=== PATIENT | female | born 1970 | race Caucasian/White ===

== ENCOUNTER → 2019-12-30 08:21 | Outpatient (CLI) | payer OTHER, SELFPAY ==
--- NOTE | ~2019-12-30 | MMUS_ITS ---
EXAMINATION: MM diagnostic coretta BI w sona, US breast LT limited HISTORY: Breast pain TECHNIQUE: Additional 3-D tomosynthesis images of the breasts were performed and synthetic 2-D images were generated. CAD analysis was submitted and interpreted. High resolution left breast ultrasound w as performed. COMPARISON: Comparison to multiple prior studies sequentially, with oldest reviewed study dated 11/05. BREAST PARENCHYMAL COMPOSITION: The breasts are extremely dense, which lowers the sensitivity of mamm ography FINDINGS: MAMMOGRAPHIC FINDINGS: There are no suspicious masses, calcifications or architectural distortion in either breast to sugges t malignancy. ULTRASOUND: Limited left breast ultrasound: Normal heterogeneous echotexture without focal solid or cystic mass. IMPRESSION: 1. No evidence for malignancy in either breast. 2. Routine yearly screening mammogram and regular clinical breast examination are recommended. BI-RADS Category 1: Negative Reviewed, dictated and finalized at location A. IMPRESSION: 1. No evidence for malignancy in either breast. 2. Routine yearly screening mammogram and regular clinical breast examination a re recommended. BI-RADS Category 1: Negative
== END ==
PROVIDERS: Visit Provider Student in an Organized Health Care Education/Training Program
DX: N64.4 Mastodynia (principal)
CPT/HCPCS: 76642; 77062; 77066; G0279

== ENCOUNTER → 2021-01-16 11:18 | Outpatient (CLI) | payer OTHER, SELFPAY ==
--- NOTE | ~2021-01-16 | MM_ITS ---
EXAMINATION: MM screening coretta BI w sona HISTORY: Screening TECHNIQUE: Craniocaudal and mediolateral oblique 3-D tomosynthesis images were obtained and synthetic 2-D images were generated. CAD analysis was submitted and interpreted. COMPARISON: Comparison to multiple prior studies sequentially, with oldest reviewed study dated 11/04. BREAST PARENCHYMAL COMPOSITION: The breasts are extremely dense, which lowers the sensitivity of mamm ography. FINDINGS: There is no evidence of suspicious mass, calcification, or architectural distortion to sugg est malignancy in either breast. There has been no suspicious interval change. IMPRESSION: 1. No mammographic evidence of malignancy. 2. Recommend routine screening mammography in one year. BI-RADS Category 1: Negative Reviewed, dictated and finalized at location A.
== END ==
PROVIDERS: Visit Provider Obstetrics & Gynecology
DX: Z12.31 Encounter for screening mammogram for malignant neoplasm of breast (principal)
CPT/HCPCS: 77063; 77067

== ENCOUNTER 2021-05-17 07:33 | Outpatient (CLI) | payer OTHER, SELFPAY ==
--- NOTE | 2021-05-17 07:45 | ECHO_ITS ---
Patient Info Name: Shereen Paul Age: 51 years : 1970 Gender: Female Ht: 63 in Wt: 130 lbs BSA: 1.63 m2 HR: 85 bpm BP: 113 / 81 mmHg Heart Rhythm: Sinus Rhythm Exam Date: 05/17/2021 8:06 AM Exam Location: [facility]monary Patient Status: Outpatient Admit Date: 05/17/2021 Staff Ordering Physician: Tobias Garay DO [employer]: MARIBEL Attending Provider: Tobias Garay DO Referring Physician: Jarrod ALICEA; Exam Type: CA echo doppler color flow Study Info Indications I34.1 - Nonrheumatic mitral (valve) prolapse Complete two-dimensional, color flow and Doppler transthoracic echocardiogram is performed. Summary 1. Complete two-dimensional, color flow and Doppler transthoracic echocardiogram is performed. 2. Left ventricular chamber dimension is normal. 3. Left ventricular systolic function is normal, estimated at 60-65%. 4. The left ventricular diastolic function is normal. 5. E/e' 6 is not elevated. 6. No pulmonary hypertension, estimated pulmonary arterial systolic pressure is 18 mmHg. Left Ventricle E/e' 6 is not elevated. Left ventricular chamber dimension is normal. Left ventricular systolic function is normal, estimated at 60-65%. The left ventricular diastolic function is normal. Right Ventricle Right ventricular chamber dimension is normal. Right ventricular systolic function is normal. Left Atria Left atrial chamber dimension is normal. Right Atria Right atrial chamber dimension is normal. Aortic Valve The aortic valve is trileaflet. There is no aortic valve stenosis. There is no aortic valve regurgitation. Pulmonic Valve There is no pulmonic regurgitation. Mitral Valve There is no mitral valve stenosis. There is no mitral valve regurgitation. Tricuspid Valve There is no tricuspid valve regurgitation. No pulmonary hypertension, estimated pulmonary arterial systolic pressure is 18 mmHg. Pericardium/Pleural There is no pericardial effusion. Inferior Vena Cava Normal inferior vena cava with >50% collapse upon inspiration consistent with normal right atrial pressure, 5 mmHg. Aorta The aortic root size at the sinus of Valsalva is normal. Left Ventricular Outflow Tract Name Value Normal LVOT 2D LVOT Diameter 2.0 cm LVOT Doppler LVOT Peak Gradient 4 mmHg LVOT Mean Gradient 2 mmHg LVOT VTI 21 cm LVOT VTI/AV VTI Ratio 0.7 LVOT Stroke Volume 63 ml LVOT CO 4.0 l/min LVOT CI 2.5 l/min/m2 Pulmonic Valve Name Value Normal RVOT Doppler RVOT Peak Gradient 3 mmHg PV Doppler PV Peak Gradient
== END 2021-05-17 07:34 | disposition home or self-care (01) ==
PROVIDERS: Visit Provider Internal Medicine Cardiovascular Disease
DX: I34.1 Nonrheumatic mitral (valve) prolapse (principal)
CPT/HCPCS: 93306

== ENCOUNTER → 2022-03-20 15:14 | Outpatient (CLI) | payer OTHER, SELFPAY ==
--- NOTE | ~2022-03-20 | MM_ITS ---
EXAMINATION: MM screening coretta BI w sona HISTORY: Screening TECHNIQUE: Craniocaudal and mediolateral oblique 3-D tomosynthesis images were obtained and synthetic 2-D images were generated. CAD analysis was submitted and interpreted. COMPARISON: Comparison to multiple prior studies sequentially, with oldest reviewed study dated 11/04. BREAST PARENCHYMAL COMPOSITION: The breasts are extremely dense, which lowers the sensitivity of mamm ography. FINDINGS: There is no evidence of suspicious mass, calcification, or architectural distortion to sugg est malignancy in either breast. There has been no suspicious interval change. IMPRESSION: 1. No mammographic evidence of malignancy. 2. Recommend routine screening mammography in one year. BI-RADS Category 1: Negative Reviewed, dictated and finalized at location A.
== END ==
PROVIDERS: PCP Family Medicine; Visit Provider Obstetrics & Gynecology
DX: Z12.31 Encounter for screening mammogram for malignant neoplasm of breast (principal)
CPT/HCPCS: 77063; 77067

== ENCOUNTER 2022-04-14 12:27 | Day surgery (SDC) | payer OTHER, SELFPAY ==
[2022-03-10 15:12] VITALS: BMI 23.0
[2022-04-03 09:39] VITALS: BMI 21.9
[2022-04-14 12:47] VITALS: BP 106/68; PULSE 81; RESP 12; TEMP 36.9; O2SAT 100; BMI 22.4
--- NOTE | 2022-04-14 12:59 | WPDANESEPPF ---
Anes - Initial Pre Proc Eval Procedure: Operation Date: 04/14/22 14:00 Proposed Procedures p Screening Colonoscopy - Raúl Hendricks MD Date/Time: 04/14/22 12:59 Surgeon: Raúl Hendricks MD Pre Op Diagnosis: Neoplasm Screening Patient Data Age: 51 Gender: F Height: 1.6 m Weight: 57.6 kg Last Vital Signs Temp 36.9 C 04/14/22 12:47 Pulse 81 04/14/22 12:47 Resp 12 04/14/22 12:47 BP 106/68 04/14/22 12:47 Pulse Ox 100 04/14/22 12:47 O2 Del Method Room Air 04/14/22 12:47 Allergies Allergy/AdvReac Type Severity Reaction Status Date / Time meperidine AdvReac Mild NAUSEA Verified 04/14/22 12:46 VOMITING hydrocodone AdvReac Unknown Nausea and Verified 04/14/22 12:46 Vomiting Home Medications Medication Instructions Recorded Confirmed Type multivitamin,pr-[id number] 1 tablet PO DAILY 12/19/19 04/14/22 History (Complete Multivitamin tablet) evening primrose oil 500 mg capsule 3,000 mg PO TID 12/27/20 04/14/22 History calcium carbonate 600 mg calcium 600 mg PO DAILY 11/14/21 04/14/22 History (1,500 mg) tablet (Calcium) folic acid 1 mg tablet 1 mg PO DAILY 01/06/22 04/14/22 History prednisone 10 mg tablet 10 mg PO PRN PRN RA flare-up 01/06/22 04/14/22 History sodium,potassium,mag sulfates 17.5 See Rx Instructions PO .COMPLEX 03/10/22 Rx gram-3.13 gram-1.6 gram oral soln #354 mL (Suprep Bowel Prep Kit) methotrexate sodium 2.5 mg tablet 25 mg PO WEEKLY 04/03/22 04/14/22 History Patient hx anesthesia problems: none Family hx anesthesia problems: none Results Review: All pre-operative results and documents have been reviewed as part of the pre-operative evaluation. [facility] Past Medical History Medical History Endometriosis Family history of colon cancer in father father diagnosed at age 45. Rheumatoid arthritis Vaginal delivery x 2 Surgical History Surgical History History of breast biopsy 2016 History of cholecystectomy 2015 History of colonoscopy with polypectomy History of laparoscopy [address] teeth removed 1989 Family History Family History Mother Patient's mother is in good health Hypertension Father Carcinoma of colon Family history of elevated blood lipids Grandparent Family history of malignant neoplasm of male breast, Onset Age: 40 Family history of Alzheimer's disease Family history of malignant neoplasm of brain Other Family history of cardiovascular disease Social History Social History Social History: Shereen is , she is a teacher for [employer] Smoking status: Never smoker Second hand tobacco smoke exposure: No Alcohol intake: current Substance use: never Substance use type: does not use Living arrangements: alone Spiritual care concerns: No Anes - Eval Final PreProcedure Day of Procedure 04/14/22 12:59 Patient weight: normal Heart: regular rate and rhythm Lungs: clear to auscultation Airway: Mallampati scale class II Neurological: alert and oriented Last oral intake: >/= 8 hours ASA classification: II Emergent: no Anesthetic plan: proceed Anesthesia type and monitoring: general GIVS and standard monitoring Results Review: All pre-operative results and documents have been reviewed as part of the pre-operative evaluation. Informed Consent: The patient's anesthetic plan and its attendant risks and benefits were discussed with the patient/family/POA. Questions were solicited and answers provided to the satisfaction of the patient/family/POA.
[2022-04-14] MEDS: LACTATED RINGERS 1,000 ML 150 ML IV CONT (13:01)
--- NOTE | 2022-04-14 13:13 | PM.HPGS ---
History of Present Illness History of Present Illness Consent: Risks, benefits, and alternatives have been discussed and questions answered. Patient agrees to proceed with procedure. Chief complaint: Neoplasm Screening Narrative: Shereen Paul is a 51 year old female Presents for screening colonoscopy. Patient's current weight appetite and bowel movements are normal. She denies abdominal pain. She has had no bleeding. Patient reports that she was found to have a benign polyp in 2006. None on more recent colonoscopies. Family history is significant her father had colon cancer at age 45. Patient presents today for screening colonoscopy. Patient presents today for screening colonoscopy. Review of Systems Review of Systems: Review of systems noncontributory. PMFSH Past Medical History Medical History Endometriosis Family history of colon cancer in father father diagnosed at age 45. Rheumatoid arthritis Vaginal delivery x 2 Surgical History Surgical History History of breast biopsy 2015 History of cholecystectomy 2014 History of colonoscopy with polypectomy History of laparoscopy [address] [place] teeth removed 1989 Family History Family History Mother Patient's mother is in good health Hypertension Father Carcinoma of colon Family history of elevated blood lipids Grandparent Family history of malignant neoplasm of male breast, Onset Age: 40 Family history of Alzheimer's disease Family history of malignant neoplasm of brain Other Family history of cardiovascular disease Social History Social History Social History: Shereen is , 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 smoker Second hand tobacco smoke exposure: No Alcohol intake: current Substance use: never Substance use type: does not use Living arrangements: alone Spiritual care concerns: No Meds Home Medications and Allergies Home Medications Medication Instructions Recorded Confirmed Type multivitamin,gn-dlck-furmbyxh 1 tablet PO DAILY 12/19/19 04/14/22 History (Complete Multivitamin tablet) evening primrose oil 500 mg capsule 3,000 mg PO TID 12/27/20 04/14/22 History calcium carbonate 600 mg calcium 600 mg PO DAILY 11/14/21 04/14/22 History (1,500 mg) tablet (Calcium) folic acid 1 mg tablet 1 mg PO DAILY 01/06/22 04/14/22 History prednisone 10 mg tablet 10 mg PO PRN PRN RA flare-up 01/06/22 04/14/22 History sodium,potassium,mag sulfates 17.5 See Rx Instructions PO .COMPLEX 03/10/22 Rx gram-3.13 gram-1.6 gram oral soln #354 mL (Suprep Bowel Prep Kit) methotrexate sodium 2.5 mg tablet 25 mg PO WEEKLY 04/03/22 04/14/22 History Allergies Allergy/AdvReac Type Severity Reaction Status Date / Time meperidine AdvReac Mild NAUSEA Verified 04/14/22 12:46 VOMITING hydrocodone AdvReac Unknown Nausea and Verified 04/14/22 12:46 Vomiting Vital Signs Vital Signs - 24 hr 04/14/22 12:47 Temperature 98.4 F Pulse Rate 81 Respiratory Rate 12 Blood Pressure 106/68 Pulse Oximetry 100 Oxygen Delivery Room Air Exam Narrative: Physical exam reveals patient be alert. Vital signs stable. HEENT exam is unremarkable. Patient is anicteric. Lungs are clear to auscultation and percussion. Heart is without murmur or extra sounds. Abdomen bowel sounds present soft nontender with no organomegaly. Digital external rectal exam normal. Assessment and Plan Assessment and plan (1) Family history of colon cancer in father: Code(s): Z80.0 - Family history of malignant neoplasm of digestive organs Status: Acute Assessment and Plan: Patient presents for screening colonoscopy. Father had colon cancer at a young age 45. Plan for mendez
[2022-04-14 13:36] VITALS: BP 107/69; PULSE 86; RESP 12; O2SAT 96
[2022-04-14 13:46] VITALS: BP 105/62; BP 114/68; PULSE 70; PULSE 73; RESP 12; O2SAT 100
--- NOTE | 2022-04-14 13:54 | WPDANESPN ---
Anes - Prog Note Post-Op Date/Time: 04/14/22 13:54 Cardiovascular status: normal Respiratory status: normal Airway patency: baseline Mental status: baseline Post-Op hydration status: normal Vital Signs: Last Vital Signs Temp 36.9 C 04/14/22 12:47 Pulse 73 04/14/22 13:46 Resp 12 04/14/22 13:46 BP 105/62 04/14/22 13:46 Pulse Ox 100 04/14/22 13:46 O2 Del Method Room Air 04/14/22 13:46 Pain Score (VAS): 0/10 I/O: Intake & Output 04/13/22 04/14/22 04/14/22 23:59 07:59 15:59 Intake Total 300 Balance 300 Patient Feedback: Patient satisfied with anesthetic care.
== END 2022-04-14 14:13 | disposition home or self-care (01) ==
PROVIDERS: PCP Family Medicine; Visit Provider Internal Medicine Gastroenterology
PROC: 0DJD8ZZ Inspection of Lower Intestinal Tract, Via Natural or Artificial Opening Endoscopic (ICD-10-PCS; CPT 45378; principal; 2022-04-14 14:00)
DX: Z80.0 Family history of malignant neoplasm of digestive organs (principal)
CPT/HCPCS: 45378

== ENCOUNTER → 2022-11-14 12:07 | Outpatient (CLI) | payer OTHER, SELFPAY ==
--- NOTE | ~2022-11-14 | XR_ITS ---
Clinical Indication: Chest pain PA and lateral views of the chest: Comparison: 07/27/2014 Findings: The lungs are clear, without evidence of focal consolidation or pleural effusion. Cardiome diastinal silhouette is within normal limits. Bones and soft tissues are unremarkable. Impression: Normal chest. Reviewed, dictated and finalized at location . Impression: Normal chest.
== END ==
PROVIDERS: PCP Family Medicine; Visit Provider Nurse Practitioner Family
DX: R07.9 Chest pain, unspecified (principal); R05.9 Cough, unspecified
CPT/HCPCS: 71046

== ENCOUNTER → 2023-06-26 16:19 | Outpatient (CLI) | payer OTHER, SELFPAY ==
--- NOTE | ~2023-06-26 | MM_ITS ---
EXAMINATION: MM screening coretta BI w sona HISTORY: Screening TECHNIQUE: Craniocaudal and mediolateral oblique 3-D tomosynthesis images were obtained and synthetic 2-D images were generated. CAD analysis was submitted and interpreted. COMPARISON: Comparison to multiple prior studies sequentially, with oldest reviewed study dated 2016. BREAST PARENCHYMAL COMPOSITION: The breasts are heterogeneously dense, which may obscure small masses FINDINGS: The left breast is stable without evidence for malignancy. There is a tissue marker in the upper outer quadrant of the left breast, middle third. There are developing asymmetries in the lower inner quadrant of the right breast. IMPRESSION: 1. Developing right breast asymmetries, lower inner quadrant. 2. Additional mammographic views and possible breast ultrasound are recommended. BI-RADS Category 0: Incomplete: Needs additional imaging evaluation. Reviewed, dictated and finalized at location A. MAN IMPRESSION: 1. Developing right breast asymmetries, lower inner quadrant. 2. Additional mammographic views and possible breast ultrasound are recommended . BI-RADS Category 0: Incomplete: Needs additional imaging evaluation.
== END ==
PROVIDERS: PCP Registered Nurse; Visit Provider Registered Nurse
DX: Z12.31 Encounter for screening mammogram for malignant neoplasm of breast (principal); R92.8 Other abnormal and inconclusive findings on diagnostic imaging of breast
CPT/HCPCS: 77063; 77067

== ENCOUNTER → 2023-07-22 09:20 | Outpatient (CLI) | payer OTHER, SELFPAY ==
--- NOTE | ~2023-07-22 | MMUS_ITS ---
EXAMINATION: MM diagnostic coretta RT w sona, US breast RT limited HISTORY: Right breast focal asymmetry on screening mammogram TECHNIQUE: Additional 3-D tomosynthesis images of the right breast were performed and synthetic 2-D i mages were generated. CAD analysis was submitted and interpreted. High resolution limited right breas t ultrasound was performed. COMPARISON: 06/26/2023, 03/20/2022, 1121, 12/30/2019 FINDINGS: MAMMOGRAPHIC FINDINGS: There is a return to baseline fibroglandular appearance with spot compression of the right breast in the area questioned on screening mammogram. ULTRASOUND: There is no evidence of focal abnormal solid or cystic mass in the vicinity of the mammographic findi ng in question. IMPRESSION: 1. No mammographic or sonographic evidence of malignancy. 2. Recommend routine screening mammography in one year. BI-RADS Category 1: Negative Reviewed, dictated and finalized at location A. UNTING MANAGER IMPRESSION: 1. No mammographic or sonographic evidence of malignancy. 2. Recommend routine screening mammography in one year. BI-RADS Category 1: Negative
== END ==
PROVIDERS: PCP Registered Nurse; Visit Provider Registered Nurse
DX: R92.8 Other abnormal and inconclusive findings on diagnostic imaging of breast (principal)
CPT/HCPCS: 76642; 77061; 77065; G0279

== ENCOUNTER 2024-09-30 15:20 | Outpatient (CLI) | payer OTHER, SELFPAY ==
--- NOTE | ~2024-09-30 | MM_ITS ---
EXAMINATION: MM screening coretta BI w sona HISTORY: Screening TECHNIQUE: Craniocaudal and mediolateral oblique 3-D tomosynthesis images were obtained and synthetic 2-D images were generated. CAD analysis was submitted and interpreted. COMPARISON: Comparison to multiple prior studies sequentially, with oldest reviewed study dated 11/17. BREAST PARENCHYMAL COMPOSITION: Dense: The breasts are heterogeneously dense, which may obscure small masses FINDINGS: There is no evidence of suspicious mass, calcification, or architectural distortion to sugg est malignancy in either breast. There has been no suspicious interval change. IMPRESSION: 1. No mammographic evidence of malignancy. 2. Recommend routine screening mammography in one year. BI-RADS Category 1: Negative Reviewed, dictated and finalized at location A.
== END 2024-09-30 15:21 | disposition home or self-care (01) ==
PROVIDERS: PCP Nurse Practitioner Family; Visit Provider Nurse Practitioner Family
DX: Z12.31 Encounter for screening mammogram for malignant neoplasm of breast (principal)
CPT/HCPCS: 77063; 77067

== ENCOUNTER 2024-11-29 12:06 | Outpatient (CLI) | payer OTHER, SELFPAY ==
--- NOTE | ~2024-11-29 | XR_ITS ---
3 VIEWS LUMBAR SPINE Ordering provider: Kerri Nogueira NP History: . M53.3 - Sacrococcygeal disorders, not elsewhere classified . Comparison: None. FINDINGS: VERTEBRAL BODIES:Mild levoscoliosis. No visible fracture or subluxation. DISK SPACES: Normal. SOFT TISSUES: Normal. IMPRESSION: No acute osseous abnormality lumbar spine. Mild levoscoliosis. Reviewed, dictated and finalized at location A.
--- NOTE | ~2024-11-29 | XR_ITS ---
EXAM/ PROCEDURE: XR sacroiliac joints min 3V - 11/29/2024 12:10 CDT HISTORY: 54 years old Female with M53.3 - Sacrococcygeal disorders, not elsewhere classified COMPARISON: None available TECHNIQUE: Three view(s) FINDINGS/ IMPRESSION: There are no fractures or dislocations.Joint spaces are within normal limits Reviewed, dictated and finalized at location A.
== END 2024-11-29 12:07 | disposition home or self-care (01) ==
LOC: GOSHIMG 12:08
PROVIDERS: PCP Nurse Practitioner; Visit Provider Nurse Practitioner Family
DX: M53.3 Sacrococcygeal disorders, not elsewhere classified (principal); M41.86 Other forms of scoliosis, lumbar region
CPT/HCPCS: 72100; 72202